=== PATIENT | female | born 1985 | race Caucasian/White ===

== ENCOUNTER → 2019-06-12 16:31 | Outpatient (CLI) | payer OTHER, SELFPAY ==
[2019-06-12 18:13] LABS: Hematocrit 32.9 % (36-46); Hemoglobin 11.3 g/dL (12.0-16.0)
[2019-06-12 18:40] LABS: GTT (PREG) 1 Hour PP 50gm Dose 143 mg/dL (76-139)
== END ==
PROVIDERS: Referring Provider Family Medicine; Visit Provider Family Medicine
DX: Z34.82 Encounter for supervision of other normal pregnancy, second trimester (principal)
CPT/HCPCS: 36415; 82950; 85014; 85018

== ENCOUNTER → 2019-06-14 08:08 | Outpatient (CLI) | payer OTHER, SELFPAY ==
[2019-06-14 09:50] LABS: Glucose Fasting Gestational 89 mg/dL (76-95)
[2019-06-14 11:46] LABS: Glucose Tol Interp,Gestational INTERPRETATION
[2019-06-14 12:00] LABS: Glucose 1 Hour Gest 213 mg/dL (76-180)
[2019-06-14 12:08] LABS: Glucose 2 Hour Gest 142 mg/dL (76-155)
[2019-06-14 13:18] LABS: Glucose 3 Hour Gest 154 mg/dL (76-140)
== END ==
PROVIDERS: PCP Family Medicine; Referring Provider Family Medicine; Visit Provider Family Medicine
DX: Z34.90 Encounter for supervision of normal pregnancy, unspecified, unspecified trimester (principal); R73.09 Other abnormal glucose
CPT/HCPCS: 36415; 82951; 82952

== ENCOUNTER → 2019-08-07 15:21 | Outpatient (CLI) | payer OTHER, SELFPAY ==
--- NOTE | 2019-08-07 15:22 | DI.US.S_ITS ---
PROCEDURE: US OB LIMITED INDICATIONS: GESTATIONAL DIABETES OUTSIDE/PRIOR DATING DATA: Last menstrual period (LMP): 11/28/18. LMP-based estimated date of delivery (MEENU): 08/25/19. First dating scan (date and location): 08/07/19. Estimated date of delivery (MEENU) from first dating scan: 08/31/19. TECHNIQUE: Real-time scanning was performed of the fetus, with image documentation and biometric measurements. Endovaginal scanning: No COMPARISON: None. FINDINGS: General: A single living intrauterine gestation is present. Presentation: Vertex Placenta: Placental position is anterior fundal, without previa. Amniotic fluid index: 6.9 cm, normal range is 5-24 cm. heart rate: 141 beats per minute. Maternal cervical canal: 3.1 cm long. Normal lower limit is 2.5 cm. biometrics: Biparietal diameter: 36 weeks 3 days Head circumference: 36 weeks 4 days Abdominal circumference: 37 weeks 3 days Femur length: 35 weeks 5 days Estimated gestational age from initial scan/LMP: 36 weeks 0 days Composite gestational age from present scan: 36 weeks 4 days Estimated weight and percentile: 3022 g; 72nd percentile Measurement variability for biometric dating: +/- 7 days from 14 weeks to 15 weeks 6 days gestation, +/- 10 days from 16 weeks to 21 weeks 6 days gestation, +/- 2 weeks from 22 weeks to 27 weeks 6 days gestation, +/- 3 weeks for 28 weeks gestation or later. weight reference: 4500 g or EFW >90/95% is considered macrosomia or large for gestational age. EFW <10% is small for gestational age. EFW 5% or less is considered intra-uterine growth restriction. Other: Limited anatomy. IMPRESSION: 1. Single living IUP with composite gestational age of 36 weeks 4 days corresponding to some MEENU of 08/31/19. 2. Amniotic fluid index lower limits of normal. 3. Limited anatomic survey secondary to advanced gestational age. Dictated by: Favian Gill [facility] Interpreted: Greyson Emerson MD on 08/07/2019 at 16:40 Approved by: Greyson Emerson M.D. on 08/07/2019 at 17:40
== END ==
PROVIDERS: PCP Preventive Medicine Public Health & General Preventive Medicine; Referring Provider Family Medicine; Visit Provider Family Medicine
DX: O24.410 Gestational diabetes mellitus in pregnancy, diet controlled (principal); Z3A.36 36 weeks gestation of pregnancy
CPT/HCPCS: 76815

== ENCOUNTER → 2019-08-10 11:58 | Outpatient (CLI) | payer OTHER, SELFPAY ==
[2019-08-11 16:31] LABS: Strep Grp B PCR NEG for Grp B Strep
== END ==
PROVIDERS: PCP Preventive Medicine Public Health & General Preventive Medicine; Visit Provider Family Medicine
DX: Z34.90 Encounter for supervision of normal pregnancy, unspecified, unspecified trimester (principal); Z3A.36 36 weeks gestation of pregnancy
CPT/HCPCS: 87653

== ENCOUNTER 2019-08-30 03:13 | Inpatient (IN) | payer OTHER, SELFPAY ==
[2019-08-30] MEDS: OXYTOCIN 10 UNIT/ML VIAL IM (03:50)
[2019-08-30] MEDS: miSOPROStoL 200 MCG TABLET 400 MCG PO (04:10)
--- NOTE | 2019-08-30 04:20 | PM.OBPRVD ---
Events: Gestational Diabetes (GDMA1) and Meconium Stained Fluid Labor & Delivery Delivery date: 08/30/19 Cervical ripening method: none Induction method: none Delivery monitor: external FHT and external uterine Route of delivery: L&D Laceration Description: Perineal - 2nd Degree Delivery repair: chromic (3.0) Estimated blood loss (mL): 600 Anesthesia type: None Narrative: Patient C/C/+2 and pushing without medication or intervention upon my arrive. SROM had just occurred for meconium stained amniotic fluid. Rapid descent of a viable baby boy in QUINN position with a single loose nuchal cord reduced on the perineum. The shoulders delivered easily, without additional maneuvers. was placed on maternal abdomen for drying and stimulation. Terminal meconium was noted. [place] had good tone and heart rate of 110bpm @ 30 seconds with minimal respiratory effort. The cord was double clamped and cut at that time and the was taken to the warmer for additional stimulation and spontaneous cry was heard at about 1 minute of life. Hospital cord blood hold sample was collected. Gentle cord traction led to spontaneous, Neal delivery of an apparently intact placenta, trailing membranes and 3VC. Membranes were teased out w/ a ring forceps. Pitocin 10 units IM was given. Fundus immediately and consistently firm w/ intermittent gushing. Vagina and perineum inspected. A 2nd degree perineal laceration was repaired w/ 3.0 Chromic in the usual fashion, under 1% lidocaine local anesthesia. Misoprostil 400mcg SL was given w/ QBL 600mL. Both mother and baby stable and skin to skin as I left the room. Baby 1: gender: Male Presentation: vertex position: Right Occiput Anterior Placenta delivery description: Spontaneous cord vessel description: 3 Vessels (with a single loose nuchal cord) score (1 min): 7 score (5 min): 9 Plan for aftercare: Routine PP orders. Anticipate discharge to home in 18-24 hours.
[2019-08-30 04:33] LABS: Add Manual Diff / Slide Review NO; Basophils Absolute Auto 0 /uL (0-100); Basophils Percent Auto 0.5 % (0-2); Eosinophils Absolute Auto 100 /uL (0-450); Eosinophils Percent Auto 0.9 % (2-4); Hematocrit 34.7 % (36-46); Hemoglobin 11.8 g/dL (12.0-16.0); Lymphocytes Absolute Auto 1600 /uL (1100-4500); Lymphocytes Percent Auto 23.8 % (25-40); Mean Corpuscular HGB Conc 33.9 % (30-36); Mean Corpuscular Hemoglobin 31.3 PG (26-34); Mean Corpuscular Volume 92.3 fL (80-100); Monocytes Absolute Auto 400 /uL (0-900); Monocytes Percent Auto 6.1 % (3-14); Neutrophils Absolute Auto 4700 /uL (1500-7000); Neutrophils Percent Auto 68.7 % (50-75); Platelet Count 126 X10^3/uL (150-400); Red Blood Cell Count 3.76 X10^6/uL (4.0-5.2); Red Cell Distribution Width 15.2 % (11.6-14.8); White Blood Cell Count 6.9 X10^3/uL (4.5-11.0)
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
[2019-08-30] MEDS: IBUPROFEN 600 MG TABLET PO ×2 (04:39→18:06)
[2019-08-30] MEDS: ACETAMINOPHEN 325 MG TABLET 650 MG PO ×2 (04:39→18:07)
[2019-08-30 06:40] VITALS: BP 126/78
[2019-08-30] MEDS: PRENATAL VIT,CALC/IRON/FOLIC 1 TABLET 1 TAB PO (10:06)
[2019-08-30] MEDS: DOCUSATE 100 MG CAPSULE PO (10:06)
--- NOTE | 2019-08-31 07:59 | P.DS_ITS ---
Discharge Providers Provider Date of admission: 08/30/19 03:13 Discharge Date: 08/31/19 Primary care physician: Kvng Lou Consults: 08/31/19 04:14 Consult to Special Officer [employer]omat Routine Comment: Discharge provider: DO Benton Leonard Hospital Course Date Patient Seen: 08/31/19 Time Patient Seen: 08:00 Procedures: Spontaneous vaginal delivery Hospital Course: Patient is a 33-year-old G2 now P2 after uncomplicated precipitous vaginal delivery at 39 weeks and 2 days gestation on 08/30/19. Patient presented in active labor and delivered a vigorous male infant shortly after arrival. A second-degree perineal laceration was repaired in the usual fashion. There were no complications . Patient was ambulating, voiding, passing flatus. Vaginal bleeding was light to moderate. Pain well controlled with ibuprofen o nly. with some difficulty but patient and infant were seen by . Advised patient to call for fevers, severe pain or bleeding through more than a pad an hour. Follow-up in clinic in 6 weeks. Peripartum Data Delivery Method: Natural Vaginal Laceration description: Perineal - 2nd Degree complications: none [place] 1: Gender: Male Disposition of : home Discharge Diagnosis (1) Spontaneous vaginal delivery: Status: Acute (2) 39 weeks gestation of : Status: Acute Status at Discharge Functional status at discharge: independent ambulation Overall status at discharge: patient is progressing back to baseline Time Spent with Patient Time attestation: Total time spent providing and/or coordinating discharge services: Objective Labs Result Diagrams: 08/30/19 04:15 Exam Vital Signs (past 8 hours): Temperature 97.1? blood pressure 102/61 heart rate 71 Narrative Exam Narrative: General: Awake and alert, no acute distress. HEENT: NCAT, EOMI, moist oral mucosa CV: Regular rate and rhythm, no murmurs, rubs or gallops Lungs: CTAB, no wheezes, rales, or rhonchi Abdomen: Soft, nontender; bowel tones active; uterus firm 1 cm below umbilicus Extremities: Warm, no edema Discharge Plan Discharge Plan Patient Disposition: Home Discharge orders & Medications Prescriptions: New docusate sodium [DOK] 100 mg Capsule 100 mg PO DAILY Qty: 30 RF: 0 ibuprofen 600 mg Tablet 600 mg PO Q6HR PRN (Reason: Pain, Mild (1-3)) Qty: 30 RF: 0 Continued PNV 119-iron fum-folic acid 29 mg iron- 1 mg tablet 1 tab PO DAILY RF: 0 sertraline 100 mg tablet 100 mg PO DAILY RF: 0 acetaminophen PO RF: 0 Discontinued (DME) Blood Glucose Test Strip See Rx Instructions .ROUTE .MEDSUPPLY Qty: 100 RF: 11 (DME) lancets Misc See Rx Instructions .ROUTE .MEDSUPPLY Qty: 200 RF: 11 (DME) blood-glucose meter Misc See Rx Instructions .ROUTE .MEDSUPPLY Qty: 1 RF: 0 Follow up/Referrals: Kvng Lou [Primary Care Provider] - Visit Report/Discharge Packet Visit Report Forms: Patient Portal/API, Stroke Signs & Symptoms Discharge Data Primary Care Provider: Kvng Lou
[2019-08-31] MEDS: DOCUSATE 100 MG CAPSULE PO (08:34)
[2019-08-31] MEDS: PRENATAL VIT,CALC/IRON/FOLIC 1 TABLET 1 TAB PO (08:34)
== END 2019-08-31 09:50 | disposition home or self-care (01) | DRG 805 ==
PROVIDERS: Admitting Provider Nurse Practitioner Obstetrics & Gynecology; PCP Preventive Medicine Public Health & General Preventive Medicine; Referring Provider Nurse Practitioner Obstetrics & Gynecology; Visit Provider Nurse Practitioner Obstetrics & Gynecology
DX: O24.429 Gestational diabetes mellitus in childbirth, unspecified control (principal); O60.14X0 Preterm labor third trimester with preterm delivery third trimester, not applicable or unspecified; Z37.0 Single live birth; Z3A.38 38 weeks gestation of pregnancy; O70.1 Second degree perineal laceration during delivery; O77.0 Labor and delivery complicated by meconium in amniotic fluid; O62.3 Precipitate labor; O69.81X0 Labor and delivery complicated by cord around neck, without compression, not applicable or unspecified
CPT/HCPCS: 36415; 59050; 85025; 86850; 86900; 86901; G0379; J2590; S0191

== ENCOUNTER → 2019-10-18 08:21 | Outpatient (CLI) | payer OTHER, SELFPAY ==
[2019-10-18 10:13] LABS: Glucose Fasting 90 mg/dL (70-100)
[2019-10-18 10:39] LABS: Glucose Tol Interpretation INTERPRETATION
[2019-10-18 11:19] LABS: Glucose 1 Hour 121 mg/dL (70-170)
[2019-10-18 12:23] LABS: Glucose 2 Hour 60 mg/dL (70-140)
== END ==
PROVIDERS: PCP Preventive Medicine Public Health & General Preventive Medicine; Referring Provider Family Medicine; Visit Provider Family Medicine
DX: O24.410 Gestational diabetes mellitus in pregnancy, diet controlled (principal)
CPT/HCPCS: 36415; 82951; 82952